=== PATIENT | female | born 1970 | race Caucasian/White ===

== ENCOUNTER → 2020-06-16 | Outpatient (CLI) | payer OTHER ==
[~2020-06-16] MED LIST: CHOL10002 PO; ESCI10 PO; FISH1000 PO; HYDACE5 PO; MULVITA PO; NAPR500 PO; Pepcid40 MG PO; RANI150 PO; RXHYDACE PO; RXSULTRIDS PO; SUCR1 PO; SULTRIDS PO; Zofran Odt8 MG SL
== END | disposition home or self-care (01) ==
LOC: LAB EV 19:03 → LAB SHORT 19:03
DX: R30.0 Dysuria (principal)
CPT/HCPCS: 87086